=== PATIENT | male | born 1985 | race Caucasian/White ===

== ENCOUNTER → 2020-07-01 09:22 | Outpatient (CLI) | payer BC, SELFPAY ==
--- NOTE | ~2020-07-01 | MR_ITS ---
EXAMINATION: MR lumbar spine wo con DATE: 07/01/2020 09:53 INDICATION: Other symptoms and signs involving the musculoskeletal system. TECHNIQUE: Magnetic resonance imaging (MRI) of the lumbar spine was performed without intravenous con trast. Sequences included sagittal T2-weighted FSE, sagittal T2-weighted FS FSE, sagittal T1-weighted FSE, and axial T2-weighted FSE. COMPARISON: Chest 2 views 03/10/2010 FINDINGS: There is 3 mm retrolisthesis of L5 on S1. Vertebral body heights are normal. There is a hem angioma in L3 vertebral body. There is mildly decreased disc height at L5-S1. The distal spinal cord signal intensity is normal. The conus medullaris is at L1-L2. The following disc levels are specifica lly discussed: L1-L2: The disc does not extend beyond the endplate margin. There is no facet joint osteoarthritis. T here is no neural foraminal stenosis. There is no central canal stenosis. L2-L3: There is a left foraminal protrusion. There is mild bilateral facet joint osteoarthritis. Ther e is mild left neural foraminal stenosis. There is no central canal stenosis. L3-L4: The disc is bulging. There is no facet joint osteoarthritis. There is mild bilateral neural fo raminal stenosis. There is no central canal stenosis. L4-L5: The disc is bulging. There is no facet joint osteoarthritis. There is mild bilateral neural fo raminal stenosis. There is no central canal stenosis. L5-S1: The disc is bulging and has an annular fissure. There is mild bilateral facet joint osteoarthr itis. There is mild bilateral neural foraminal stenosis. There is mild central canal stenosis. IMPRESSION: 1. Mild lumbar spondylosis. Reviewed, dictated and finalized at location A. [employer] IMPRESSION: 1. Mild lumbar spondylosis.
== END ==
PROVIDERS: PCP Family Medicine; Visit Provider Physician Assistant Medical
DX: R29.898 Other symptoms and signs involving the musculoskeletal system (principal); R20.0 Anesthesia of skin; M47.816 Spondylosis without myelopathy or radiculopathy, lumbar region
CPT/HCPCS: 72148

== ENCOUNTER 2023-10-30 17:50 | Emergency (ER) | payer BC, SELFPAY ==
[2023-10-30] VITALS (8 sets, daily range): BP systolic 104–123; BP diastolic 71–80; PULSE 72–89; RESP 12–18; TEMP 37; O2SAT 97–100
--- NOTE | ~2023-10-30 | XR_ITS ---
EXAMINATION: XR chest 2V DATE: 10/30/2023 18:42 INDICATION: Chest pain. TECHNIQUE: Frontal and lateral views of the chest were obtained. COMPARISON: Chest 2 views 03/10/2010 FINDINGS: Again seen is shrapnel in left chest. There is no pneumonia, pleural effusion, or pneumotho rax. The heart size is normal. There is an old healed fracture of left sixth rib. IMPRESSION: 1. No acute cardiopulmonary disease. Reviewed, dictated and finalized at location E.
--- NOTE | 2023-10-30 17:58 | ECG_ITS ---
SEE SCANNED COPY FOR CONFIRMED REPORT MTDD
--- NOTE | 2023-10-30 18:36 | ED.GENADULT ---
HPI - General Adult General Chief complaint: Unspecified Stated complaint: throat issue Time Seen by Provider: 10/30/23 18:22 History of Present Illness HPI narrative: 38-year-old male with a reported past medical history of an undiagnosed autoimmune disorder and GERD presents to emergency department for multiple medical complaints. Patient states in June 2022 he began developing discomfort in the right side of his neck. He describes discomfort while swallowing but denies difficulty swallowing. He states he was seen by an ENT at [place] [facility] who performed a scope that was unremarkable. Patient states symptoms somewhat improved few weeks later, however the past few days they have began to worsen again. Patient states over the past couple of days he developed a right-sided headache and ear pain. Patient states today while he was sitting at mother's Day he began having right-sided chest pain that radiated into his right shoulder and mid chest. Describes the pain as a ?pinching? pain that lasted for approximately an hour and is now intermittent. He states it does not feel like GERD, nausea vomiting, diaphoresis, dyspnea, history of VT. No prior cardiac history. Denies family L cardiac or CVA history. He has no history of hyperlipidemia, hypertension diabetes or smoking. He states his headache is pulsating in his in his right restorationism. He notes that he normally does not get headaches and this is unusual for him. He states he has some anxiety but does not feel like his symptoms are associated with anxiety. Denies fever, cough or congestion, nuchal rigidity, vision changes, focal numbness or weakness. Related Data Home Medications Medication Instructions Recorded Confirmed No Home Medications 05/12/20 04/06/22 Allergies Allergy/AdvReac Type Severity Reaction Status Date / Time No Known Allergies Allergy Mild Verified 04/08/23 10:14 Review of Systems Review of Systems: CONSTITUTIONAL: Denies fever, chills, or sweats. EYES: Denies visual changes, redness, or discharge. ENT: See HPI CARDIOVASCULAR: See HPI RESPIRATORY: Denies cough or dyspnea. GASTROINTESTINAL: Denies abdominal pain, nausea, vomiting, or diarrhea. GENITOURINARY: Denies dysuria or hematuria. SKIN: Denies rash or itching. MUSCULOSKELETAL: Denies back pain, joint pain, or myalgia. NEUROLOGIC: See HPI PSYCHIATRIC: Denies anxiety or depression. [facility] Past Medical History Medical History Abnormal increased muscle tightness BMI 31.0-31.9,adult BMI 32.0-32.9,adult Muscle pain, myofascial Other specified abnormal immunological findings in serum Family History Family History Grandparent Hypertension Family history of lung cancer Diabetes mellitus Father Hypertension Social History Social History Smoking status: Never smoker Alcohol intake: current Lack of Transportation: No Lack of Food: Never True Current Housing: I Have Housing Concerned About Future Housing: No Difficulty Paying Gas/Electric Bills: No Difficulty Paying for Meds: No Currently Unemployed: No Education: Master's Degree or Higher Difficulty w/ Childcare or Family Care: No Living arrangements: with family Exam Narrative: GENERAL: Well-appearing, well-nourished, and in no acute distress. HEAD: Normocephalic, atraumatic. EYES: PERRLA and EOMI. ENT: Nares clear, no rhinorrhea or epistaxis. Mucous membranes moist. Posterior pharynx without erythema or edema. No tonsillar hypertrophy or uvular deviation. Patient tolerating secretions and swallowing without difficulty. No adenopathy palpated. No airway compromise NECK: Supple. CHEST: Clear to auscultation. No respiratory distress. HEART: Regular rate and rhythm. No murmur heard. Normal peripheral pulses. ABDOMEN: Soft, non
[2023-10-30 19:13] LABS: Basophils Percent Auto 0.4 % (0.2-1.2); Eosinophils Absolute Auto 0.2 K/mm3 (0-0.3); Eosinophils Percent Auto 1.9 % (0-4.4); Hematocrit 37.7 % (42.0-52.0); Hemoglobin 12.8 g/dL (14.0-18.0); Immature Granulocyte Absolute 0.02 K/mm3 (0.00-0.031); Immature Granulocyte Percent A 0.2 % (0-0.5); Lymphocytes Absolute Auto 1.18 K/mm3 (0.9-3.2); Lymphocytes Percent Auto 14.2 % (18.3-44.2); Mean Corpuscular Hemoglobin 31.8 pg (26-34); Mean Corpuscular Volume 93.5 fl (80-100); Mean Platelet Volume 9.9 fl (7.4-10.4); Monocytes Absolute Auto 0.6 K/mm3 (0.1-0.6); Neutrophils Absolute Auto 6.4 K/mm3 (1.3-6.7); Neutrophils Percent Auto 76.3 % (45.5-73.1); Platelet Count Result 253 k/mm3 (150-375); Red Blood Count 4.03 M/mm3 (4.6-6.20); Red Cell Distribution Width 12.1 % (11.5-14.5); White Blood Count 8.3 K/mm3 (4.5-10.0)
[2023-10-30 19:28] LABS: Alanine Aminotransferase 16 U/L (6-50); Albumin Level 4.4 g/dL (3.5-5.1); Alkaline Phosphatase 51 U/L (38-126); Anion Gap 6 mmol/L (4-12); Aspartate Amino Transferase 27 U/L (17-59); Bilirubin,Total 0.4 mg/dL (0.2-1.3); Blood Urea Nitrogen 17 mg/dL (9-20); Calcium 8.9 mg/dL (8.4-10.2); Carbon Dioxide 24 mmol/L (22-30); Chloride 105 mmol/L (98-107); Estimated CRCL calculation 100 ml/min; Estimated Glomerular Filt Rate > 60; Glucose 108 mg/dL (65-110); Lipase 75 U/L (23-300); Potassium 4.1 mmol/L (3.4-5.0); Sodium 135 mmol/L (137-145)
[2023-10-30 19:29] LABS: Monoscreen Negative (Negative); Negative Monotest Control Negative (Negative); Positive Monotest Control Positive (Positive)
[2023-10-30] MEDS: SODIUM CHLORIDE 0.9% IV 1,000 ML 999 ML IV CONT (19:36)
[2023-10-30] MEDS: diphenhydrAMINE HCl INJ 50 MG/ML VIAL 25 MG IV PUSH (19:36)
[2023-10-30] MEDS: PROCHLORPERAZINE EDISYLATE 10 MG/2 ML VIAL IV PUSH (19:36)
[2023-10-30 19:38] LABS: Troponin I < 0.012 ng/mL (0.000-0.034)
[2023-10-30 20:16] LABS: Prothrombin Time 13.3 Seconds (11.1-14.7)
[2023-10-30 20:17] LABS: Partial Thromboplastin Time 28.6 Seconds (22.3-36.8)
[2023-10-30 20:29] LABS: Strep Group A RT-PCR NOT DETECTED (Negative)
[2023-10-30 20:41] LABS: Influenza A QL RT-PCR Negative (Negative); Influenza B QL RT-PCR Negative (Negative); SARS-CoV-2 RNA PCR Negative (Negative)
== END 2023-10-30 21:06 | disposition left against medical advice (07) ==
PROVIDERS: Emergency Provider Physician Assistant; PCP Family Medicine
DX: R07.89 Other chest pain (principal); R07.0 Pain in throat; Z20.822 Contact with and (suspected) exposure to COVID-19
CPT/HCPCS: 36415; 71046; 80053; 83690; 84484; 85025; 85610; 85730; 86308; 87636; 87651; 93005; 96361; 96374; 96375; 99284; J0780; J1200; J7030

== ENCOUNTER 2023-11-29 08:26 | Outpatient (CLI) | payer BC, SELFPAY ==
--- NOTE | ~2023-11-29 | CT_ITS ---
CT soft tissue neck w con Ordering provider: Karlene Guillen History: 38 years Male with . GLOBUS SENSATION . Comparison: None. Technique: CT soft tissues neck was performed with contrast. Radiation reduction technique utilized. Findings: LOWER HEAD: The visualized brain parenchyma, optic globes/orbits and mastoids are normal. The visua lized paranasal sinuses are well aerated. Mucosal thickening of the right maxillary, left maxillary sinus and right frontal sinus. Bilateral et hmoid sinus disease. SALIVARY GLANDS: Normal. THYROID: Normal. SUPRAHYOID DEEP SPACES: Enlarged lymph nodes seen in the parapharyngeal spaces measuring on the right 1.2 and in the left 1.1 cm. CAROTID ARTERIES: Normal. JUGULAR VEINS: Normal. TONSILS: Normal. ORAL CAVITY: Partially obscured by dental amalgam but normal as visualized. PHARYNX, LARYNX AND TRACHEA: Patent and normal. No prevertebral soft tissue swelling. SUPERFICIAL SOFT TISSUES: Normal. No lymphadenopathy or neck mass. THORACIC INLET/VISUALIZED UPPER CHEST: Normal. SKELETAL: Mild degenerative changes. IMPRESSION: 1. Borderline lymph nodes and deep parapharyngeal spaces. Otherwise, No definite mass or other abnor mality seen. Reviewed, dictated and finalized at location A. IMPRESSION: 1. Borderline lymph nodes and deep parapharyngeal spaces. Otherwise, No defini te mass or other abnormality seen.
== END 2023-11-29 08:27 ==
LOC: MICIMG 08:27
PROVIDERS: PCP Family Medicine
DX: R09.A2 Foreign body sensation, throat (principal)
CPT/HCPCS: 70491; Q9967